=== PATIENT | male | born 1990 | race African-American/Black ===

== ENCOUNTER 2019-04-06 14:28 | Emergency (ER) | payer OTHER, SELFPAY ==
[2019-04-06 14:43] VITALS: BP 125/74; PULSE 75; RESP 18; TEMP 36.8; O2SAT 100; BMI 23.6
--- NOTE | 2019-04-06 15:02 | ED_ITS ---
HPI - Skin/Abscess/Foreign Bdy General Chief complaint: Skin/Abscess/Foreign Body Stated complaint: cyst back of neck / painful Time Seen by Provider: 04/06/19 14:35 Source: patient Mode of arrival: Family Vehicle Limitations: no limitations History of Present Illness HPI narrative: 28-year-old male daily smoker with noncontributory medical history presents with a chief complaint of a painful swollen nodule on the back side of his neck worsening over the past few days. He denies any fever chills. He is not dizzy nor weak or lightheaded. He denies any neurologic symptoms. He denies any history of the same. MD complaint: abscess/boil Onset (ago): day(s) Tetanus up to date: yes Location: neck Severity: moderate Quality: aching Pain Consistency: constant Relieving factors: none Exacerbating factors: none Associated symptoms: denies other symptoms Treatments prior to arrival: none Related Data Previous Rx's Medication Instructions Recorded cyclobenzaprine 10 mg PO TID PRN #14 tab 04/06/19 doxycycline monohydrate 100 mg PO BID 10 Days #20 cap 04/06/19 ibuprofen 600 mg PO TID-QID PRN #20 tab 04/06/19 Allergies Allergy/AdvReac Type Severity Reaction Status Date / Time No Known Drug Allergies Allergy Verified 04/06/19 14:47 Review of Systems Constitutional Constitutional: Denies chills, Denies fatigue, Denies fever(s), Denies frequent falls, Denies lethargy and Denies weakness Eyes Eyes: Denies change in vision, Denies eye discharge, Denies irritation and Denies loss of vision ENT Ears, Nose, Mouth, and Throat: Denies change in voice, Denies dizziness, Denies neck pain, Denies sore throat and Denies throat swelling Cardiovascular Cardiovascular: Denies chest pain, Denies irregular heart rhythm, Denies lightheadedness, Denies palpitations, Denies dyspnea, Denies dyspnea on exertion and Denies orthopnea Respiratory Respiratory: Denies cough, Denies dyspnea, Denies dyspnea on exertion and Denies wheezing Gastrointestinal Gastrointestinal: Denies abdominal pain, Denies change in bowel habits, Denies diarrhea, Denies nausea and Denies vomiting Genitourinary Genitourinary: Denies hematuria, Denies flank pain, Denies urinary incontinence and Denies urinary urgency Musculoskeletal Musculoskeletal: Denies back pain, Denies muscle weakness, Denies neck pain, Denies numbness and Denies tingling Integumentary/Breasts Skin/Breast: Denies pruritus, Reports erythema, Denies rash, Reports skin pain, Reports skin swelling and Denies wounds Neurologic Neurologic: Denies behavioral changes, Denies confusion, Denies dizziness, Denies frequent falls, Denies loss of vision, Denies numbness, Denies tingling and Denies weakness Psychiatric Psychiatric: Denies anxiety, Denies behavioral changes, Denies confusion, Denies depression, Denies homicidal ideation and Denies suicidal ideation Endocrine Endocrine: Denies fatigue, Denies flushing and Denies palpitations Hematologic/Lymphatic Hematologic/Lymphatic: Denies easy bruising Allergic/Immunologic Allergic/Immunologic: Denies urticaria, Denies throat swelling and Denies wheezing Patient History Social History Smoking Status: Current every day smoker Smoking Status: Current every day smoker tobacco type: cigarettes alcohol intake frequency: a few times a month Substance Use Type: does not use Exam Narrative Exam Narrative: GEN: AOx3 and in mild distress EYES: Pupils are equal, round, and reactive to light and accommodation. Extraoccular muscles are intact bilaterally. There is no subconjunctival hemorrhage or exudate. CHEST: Lungs are clear to auscultation bilaterally and free of wheezes, rales, or rhonchi. Heart rate is regular rhythm, there are no murmurs, clicks, rubs, or gallops. There is no chest wall tenderness. ABD: Abdomen is soft and nontender. There is no guarding or rebound. Bowel s ounds are normal in all 4 quadrants. There is no mass or organomegaly. EXT: Full painless ROM of all extremities with no loss of sensation or strength. SKIN: 1.5 cm painful swollen and slightly erythematous nodule on posterior neck consistent with infected sebaceous cyst. There is no spontaneous drainage or surrounding erythema Initial Vital Signs Initial Vital Signs: Vital Signs Temperature 98.3 F 04/06/19 14:43 Pulse Rate 75 04/06/19 14:43 Respiratory Rate 18 04/06/19 14:43 Blood Pressure 125/74 04/06/19 14:43 Pulse Oximetry 100 04/06/19 14:43 Procedures Abscess I/D I&D #1: Site: neck Local Anesthetic: bupivacaine 0.5% Amount of anesthesia used (mL): 3 Technique: incised with #11 blade Amount of fluid expressed (mL): 5 Irrigation: No Packing used?: none Complications: pain and bleeding Course Orders Ordered: Discontinued Medications Bupivacaine HCl (Sensorcaine 0.5% (Pf)) 5 ml SUBCUT NOW ONE Stop: 04/06/19 15:40 Vital Signs Vital signs: Vital Signs - 8 hr 04/06/19 14:43 Temperature 98.3 F Pulse Rate 75 Respiratory Rate 18 Blood Pressure 125/74 Pulse Oximetry 100 Discharge Plan Departure Patient Disposition: Home Clinical Impression: Sebaceous cyst Cellulitis Qualifiers: Site of cellulitis: neck Qualified Code(s): L03.221 - Cellulitis of neck Discharge Date/Time: 04/06/19 16:07 Instructions: DI for Epidermal Cyst Activity Restrictions/Additional Instructions: *You have been diagnosed with [infected sebaceous cyst] *What to do: *Take medications as directed *Follow up with your primary care provider in 2-3 days, call for an appointment. Let them know you were seen in the Emergency Department and that we ask that you be seen in follow up *Return to ER if you should have any new, worsening or concerning symptoms Prescriptions: New doxycycline monohydrate 100 mg capsule 100 mg PO BID 10 Days Qty: 20 RF: 0 ibuprofen 600 mg tablet 600 mg PO TID-QID PRN (Reason: pain) Qty: 20 RF: 0 cyclobenzaprine 10 mg tablet 10 mg PO TID PRN (Reason: muscle spasm) Qty: 14 RF: 0
== END 2019-04-06 16:07 | disposition home or self-care (01) ==
PROVIDERS: Emergency Provider Emergency Medicine
DX: L72.3 Sebaceous cyst (principal); L03.221 Cellulitis of neck
CPT/HCPCS: 99281; 99282

== ENCOUNTER 2019-11-12 16:34 | Emergency (ER) | payer OTHER, SELFPAY ==
[2019-11-12 16:53] VITALS: BP 134/80; PULSE 83; RESP 14; TEMP 37.1; O2SAT 100; BMI 24.9
[2019-11-12 18:53] LABS: Urine N gonorrhoeae NOT DETECTED
[2019-11-12 18:56] LABS: Urine Chlamydia DETECTED
--- NOTE | 2019-11-12 20:06 | PC.NURSE ---
Acted as witness for ARLIN Espino as she gained permission to disclose STD results to patient. Patient confirmed okay to disclose results in front of partner.
--- NOTE | 2019-11-12 20:37 | ED_ITS ---
HPI - Male Genitourinary <DAVIDE Hanley - Last Filed: 11/12/19 21:07> General Chief complaint: Urogenital-Male Stated complaint: STD Time Seen by Provider: 11/12/19 18:40 Source: patient Mode of arrival: Ambulatory Limitations: no limitations History of Present Illness HPI Narrative: The patient is a 28-year-old male current smoker with history of abscess who presents with a chief complaint of a possible sexually transmitted infection. Patient states that he was exposed to somebody was positive to chlamydia. He presents with his who also comes in for testing. He denies any penile rashes drainage. He does complain of some right testicular pain. States that it has been going on for few days. He states that he might have been exposed to few weeks ago, though he is not really sure. He denies any fevers nausea vomiting diarrhea or abdominal pain. Denies any dysuria urgency or frequency. Related Data Previous Rx's Medication Instructions Recorded cyclobenzaprine 10 mg PO TID PRN #14 tab 04/06/19 ibuprofen 600 mg PO TID-QID PRN #20 tab 04/06/19 Allergies Allergy/AdvReac Type Severity Reaction Status Date / Time No Known Drug Allergies Allergy Verified 11/12/19 16:55 Review of Systems <DAVIDE Hanley - Last Filed: 11/12/19 21:07> Review of Systems Narrative: GENERAL: Denies chills, fatigue, malaise, fever, sweats. HEENT: Denies sinus pain, ear pain, sore throat, difficulty swallowing, dizziness. RESPIRATORY: Denies dyspnea, cough, wheezing, hemoptysis, sputum. CARDIOVASCULAR: Denies chest pain, palpitations, orthopnea, edema, GASTROINTESTINAL: Denies nausea, vomiting, abdominal pain, diarrhea, constipation, melena. : See HPI MUSCULOSKELETAL: denies weakness, joint pain, or bony pain SKIN: Denies rash, skin lesions, or other NEUROLOGIC: Denies weakness, headache, numbness, change in speech, confusion, seizures, incoordination. PSYCHIATRIC: No concerning psychosocial issues. 12 point review of systems is negative except for those stated above Patient History <DAVIDE Hanley - Last Filed: 11/12/19 21:07> Social History Smoking Status: Current every day smoker Smoking Status: Current every day smoker tobacco type: cigarettes alcohol intake frequency: a few times a month Substance Use Type: does not use Exam <DAVIDE Hanley - Last Filed: 11/12/19 21:07> Narrative Exam Narrative: GENERAL: This is a well-nourished, well-developed patient, in no acute distress HEAD: Atraumatic. Normocephalic. No temporal or scalp tenderness. EYES: Pupils equal round and reactive. Extraocular motions intact. No scleral icterus. No injection or drainage. ENT: Nose without bleeding, purulent drainage or septal hematoma. Wearing a mask. Airway patent. NECK: Trachea midline. No JVD or lymphadenopathy. Supple, nontender, no meningeal signs. CARDIOVASCULAR: Regular rate and rhythm RESPIRATORY: Clear to auscultation. Breath sounds equal bilaterally. No wheezes, rales, or rhonchi. No cough. No increased respiratory effort. No accessory muscle use. GASTROINTESTINAL: Abdomen soft, non-tender, nondistended. No hepato- splenomegaly, or palpable masses. No guarding. EXTREMITIES: No clubbing, cyanosis, or edema. No joint tenderness, effusion, or edema noted. BACK: Nontender without deformity or crepitance. No flank tenderness. NEURO: AOx3. SKIN: No rash or erythema on visible skin. : Slight pain to palpation right epididymis. Positive cremasteric reflexes bilaterally. No pain to palpation left as tickle. No obvious general rashes, erythema or sores. No penile drainage noted. Romaine RN at bedside during exam. Initial Vital Signs Initial Vital Signs: Vital Signs Temperature 98.8 F 11/12/19 16:53 Pulse Rate 83 11/12/19 16:53 Respiratory Rate 14 11/12/19 16:53 Blood Pressure 134/80 11/12/19 16:53 Pulse Oximetry 100 11/12/19 16:53 <Jm Jimenez DO - Last Filed: 11/12/19 21:55> Initial Vital Signs Initial Vital Signs: Vital Signs Temperature 98.8 F 11/12/19 16:53 Pulse Rate 83 11/12/19 16:53 Respiratory Rate 14 11/12/19 16:53 Blood Pressure 134/80 11/12/19 16:53 Pulse Oximetry 100 11/12/19 16:53 Scores <DAVIDE Hanley - Last Filed: 11/12/19 21:07> GCS [place] coma scale eye opening: Spontaneous Nolan coma scale verbal response: Orientated [place] coma scale motor response: Obey commands Nolan coma scale total score: 15 Course <DAVIDE Hanley - Last Filed: 11/12/19 21:07> Orders Ordered: ED Orders 11/12/19 16:50 Chlamydia Gonorrhea PCR -URINE Stat Discontinued Medications Azithromycin (Zithromax) 1,000 mg PO NOW ONE Stop: 11/12/19 20:06 Last Admin: 11/12/19 20:44 Dose: 1,000 mg Documented by: LUISARTIN Ceftriaxone Sodium (Rocephin) 250 mg IM NOW ONE Stop: 11/12/19 20:06 Last Admin: 11/12/19 20:44 Dose: 250 mg Documented by: EITAN Vital Signs Vital signs: Vital Signs - 8 hr 11/12/19 16:53 11/12/19 21:03 Temperature 98.8 F Pulse Rate 83 74 Respiratory Rate 14 18 Blood Pressure 134/80 137/89 Pulse Oximetry 100 100 <Jm Jimenez DO - Last Filed: 11/12/19 21:55> Orders Ordered: ED Orders 11/12/19 16:50 Chlamydia Gonorrhea PCR -URINE Stat Discontinued Medications Azithromycin (Zithromax) 1,000 mg PO NOW ONE Stop: 11/12/19 20:06 Last Admin: 11/12/19 20:44 Dose: 1,000 mg Documented by: RMARTIN Ceftriaxone Sodium (Rocephin) 250 mg IM NOW ONE Stop: 11/12/19 20:06 Last Admin: 11/12/19 20:44 Dose: 250 mg Documented by: NAYELYIN Vital Signs Vital signs: Vital Signs - 8 hr 11/12/19 16:53 11/12/19 21:03 Temperature 98.8 F Pulse Rate 83 74 Respiratory Rate 14 18 Blood Pressure 134/80 137/89 Pulse Oximetry 100 100 MDM - Male Genitourinary <DAVIDE Hanley - Last Filed: 11/12/19 21:07> Lab Data Labs: Lab Results 11/12/19 Range/Units 16:50 Ur Chlamydia DNA (PCR) Detected H N gonorrhoeae DNA (PCR) Not detected Urine Dip Bedside Urine Glucose Negative Bedside Urine Bilirubin - Negative Bedside Urine Ketone - Negative Urine Specific [place] 1.015 Bedside Urine Occult Blood - Negative Bedside Urine pH 7.0 Bedside Urine Protein +/- 15 Bedside Urine Urobilinogen 1+ 2mg Bedside Urine Nitrite - Negative Bedside Urine Leukocytes +/- 15 Esterase MDM Narrative Medical decision making narrative: The patient is a 28-year-old male current everyday smoker presents with a chief complaint of likely STD. He test positive for chlamydia. He is noted to have a slight testicular pain palpation, likely epididymitis due to sexually transmitted infection. The patient was treated in the emergency department with 250 mg of ceftriaxone as well as a g of azithromycin. Given concern of epididymitis related to Chlamydia, will provide dual antibiotic coverage despite negative gonorrhea. Of note the patient does present with his , they both consented to revealing test results in front of each other, Jie NASCIMENTO was my witness for that conversation. I encouraged follow-up with primary care provider in the next few days, refraining from sexual activity until test results are clear. Discussed coming back to the emergency department for any acute concerns such as worsening pain etcetera. Will hold off on ultrasound at this point time as it would not change course of treatment given current exam. Patient has no questions or concerns upon discharge and states understanding return precautions as well as follow-up care. <Jm Jimenez, DO - Last Filed: 11/12/19 21:55> Lab Data Labs: Lab Results 11/12/19 Range/Units 16:50 Ur Chlamydia DNA (PCR) Detected H N gonorrhoeae DNA (PCR) Not detected Urine Dip Bedside Urine Glucose Negative Bedside Urine Bilirubin - Negative Bedside Urine Ketone - Negative Urine Specific [place] 1.015 Bedside Urine Occult Blood - Negative Bedside Urine pH 7.0 Bedside Urine Protein +/- 15 Bedside Urine Urobilinogen 1+ 2mg Bedside Urine Nitrite - Negative Bedside Urine Leukocytes +/- 15 Esterase Discharge Plan Departure Patient Disposition: Home Clinical Impression: Chlamydia, Epididymitis Discharge Date/Time: 11/12/19 21:16 Instructions: Let's Talk About Sex (and STIs), How to Detect and Treat STDs, Chlamydia: The Silent STD, DI for Chlamydia, DI for Epididymitis Activity Restrictions/Additional Instructions: Thank you for trusting us with your care today. He did test positive for chlamydia, so we have treated you in the emergency department. We have given you 2 different antibiotics, which should take care of the infection. I suggest probiotic stand or yogurt to help prevent antibiotic associated diarrhea. Please follow-up with primary care provider in the next few days. Please come back to emergency department for any acute concerns such as worsening testicular pain etcetera As discussed, please refrain from sexual activity until it is evident that you have cleared the infection. Prescriptions: No Action ibuprofen 600 mg tablet 600 mg PO TID-QID PRN (Reason: pain) Qty: 20 RF: 0 cyclobenzaprine 10 mg tablet 10 mg PO TID PRN (Reason: muscle spasm) Qty: 14 RF: 0 [facility] <Jm Jimenez, DO - Last Filed: 11/12/19 21:55> [facility] Dr Jimenez Co-Sign Statement: I was available for consultation during this patient's emergency department visit. This chart is signed by myself for administrative purposes only. I did not have direct contact with this patient during this visit. They were seen independently by the APC.
[2019-11-12] MEDS: AZITHROMYCIN 250 MG TABLET 1000 MG PO (20:44)
[2019-11-12] MEDS: cefTRIAXone 500 MG VIAL 250 MG IM (20:44)
[2019-11-12 21:03] VITALS: BP 137/89; PULSE 74; RESP 18; O2SAT 100
== END 2019-11-12 21:16 | disposition home or self-care (01) ==
PROVIDERS: Emergency Medicine; Emergency Provider Nurse Practitioner Family
DX: A74.9 Chlamydial infection, unspecified (principal); N45.1 Epididymitis
CPT/HCPCS: 81003; 87491; 87591; 96372; 99283; J0696